=== PATIENT | male | born 1940 | race Caucasian/White ===

== ENCOUNTER 2017-08-27 06:37 | Emergency (ER) | payer OTHER ==
[~2017-08-27] VITALS: Ht 172.7 cm; Wt 68.0 kg
[~2017-08-27 06:37] MED LIST: ALBUAER3 IN; AZIT500T PO; FLUT250M2 INH; TAM04C PO; WARPRX PO
[2017-08-27 06:51] VITALS: BP 131/86
[2017-08-27] MEDS ORDERED: methylPREDNISolone SOD SUCC 125 MG/2 ML VL IM ONE (07:30)
[2017-08-27] MEDS ORDERED: cefTRIAXone SOD 1,000 MG VL IM ONE (07:30)
== END 2017-08-27 08:17 | disposition home or self-care (01) ==
LOC: ER 06:38
DX: R21 Rash and other nonspecific skin eruption (principal)
CPT/HCPCS: 96372; 99284; J0696; J2930

== ENCOUNTER 2017-09-18 07:46 | Inpatient (IN) | payer OTHER ==
[~2017-09-18] VITALS: Ht 172.7 cm; Wt 72.9 kg
[2017-09-18] MEDS: BUDESONIDE (INHALATION) 0.5 MG/2 ML NEB NEB SCH ×2 (07:06→18:47)
[2017-09-18] MEDS ORDERED: SODIUM CHLORIDE 0.9% 1,000 ML IVB ONE (08:35)
[2017-09-18] MEDS ORDERED: MORPHINE SULFATE 4 MG/ML SYR/VIAL IV ONE (08:45)
[2017-09-18] MEDS ORDERED: PROMETHAZINE HCL 25 MG/ML 1ML IV ONE (08:45)
[2017-09-18 09:24] LABS: Basophils # (auto) 0.1 uL; Basophils % (auto) 0.4 % (0.0-2.0); Eosinophils # (auto) 0.1 uL; Eosinophils % (auto) 0.7 % (0.0-7.0); Lymphocytes # (auto) 1.9 uL; Nucleated Red Blood Cells % 0.2 %
[2017-09-18 09:26] LABS: Lymphocytes % (auto) 12.6 % (10.0-50.0); Mean Corpuscular Hemoglobin 25.7 pg (28.0-32.0); Mean Corpuscular Hgb Conc. 31.3 g/dL (32.0-36.0); Mean Corpuscular Volume 82.1 fL (80.0-100.0); Monocytes # (auto) 1.1 uL; Monocytes % (auto) 7.7 % (0.0-12.0); Neutrophils # (auto) 11.8 uL; Neutrophils % (auto) 78.6 % (37.0-80.0); Red Blood Cells 6.98 10^6/uL (4.5-5.90); Red Cell Distribution Width 16.5 % (11.8-14.3)
[2017-09-18 09:27] LABS: Hematocrit 57.4 % (41.0-53.0); Platelet Count (auto) 320 10^3/uL (140-450)
[2017-09-18 09:52] LABS: Alanine Aminotransferase 20 U/L (16-61); Albumin 3.5 g/dL (3.4-5.0); Alkaline Phosphatase 90 U/L (45-117); Amylase 64 U/L (25-115); Anion Gap 6 (5-15); Aspartate Aminotransferase 12 U/L (15-37); BUN/Creatinine Ratio 17.7; Bilirubin, Total 0.3 mg/dL (0.2-1.0); Blood Urea Nitrogen 17 mg/dL (7-18); Calcium 9.6 mg/dL (8.5-10.1); Carbon Dioxide 23 mmol/L (21-32); Chloride 112 mmol/L (98-107); GFR African American 98 mL/min; GFR Non-African American 81 mL/min; Glucose 107 mg/dL (74-106); Lipase 107 U/L (73-393); Potassium 4.9 mmol/L (3.5-5.1); Sodium 141 mmol/L (136-145); Total Protein 7.6 g/dL (6.4-8.2)
[2017-09-18 10:54] LABS: INR 1.34 (0.9-1.15); Partial Thromboplastin Time 24.5 sec (22.64-33.71); Prothrombin Time 14.7 sec (9.37-12.3)
[2017-09-18 11:45] LABS: Urine Bacteria NONE SEEN /hpf (None Seen); Urine Blood TRACE /uL (Negative); Urine Mucus FEW (None Seen); Urine Specific Gravity 1.026 (1.001-1.035); Urine WBC 1 /hpf (0 - 3)
[2017-09-18] MEDS ORDERED: NITROGLYCERIN 0.4 MG SL TAB SL PRN (12:15)
[2017-09-18] MEDS ORDERED: cefTRIAXone 1GM/10ml IVPUSH 10 ML IV ONE (12:15)
[2017-09-18] MEDS ORDERED: ACETAMINOPHEN 500 MG TAB PO PRN (12:15)
[2017-09-18] MEDS ORDERED: PROMETHAZINE HCL 25 MG/ML 1ML IV PRN (12:15)
[2017-09-18] MEDS ORDERED: LORazepam 0.5 MG TAB PO PRN (12:15)
[2017-09-18] MEDS ORDERED: MORPHINE SULFATE 4 MG/ML SYR/VIAL IV PRN ×2 (12:15)
[2017-09-18] MEDS ORDERED: ALBUTEROL SULF 2.5 MG/0.5ML(0.5%) NEB SOLN NEB PRN (12:15)
[2017-09-18] MEDS ORDERED: HYDROcodone-ACET 5/325MG TAB PO PRN (12:15)
[2017-09-18] MEDS ORDERED: TEMAZEPAM 15 MG CAP PO PRN (12:15)
[2017-09-18] MEDS: SODIUM CHLORIDE 0.9% 1,000 ML IV SCH ×2 (12:30→22:11)
[2017-09-18] MEDS: metroNIDAZOLE 500MG/100ML 100 ML IV SCH ×2 (12:42→17:16)
[2017-09-18] MEDS: FAMOTIDINE (10MG/ML) 2ML VL IV SCH (12:42)
[2017-09-18] MEDS ORDERED: WARFARIN SODIUM 5 MG TAB PO ONE (17:00)
[2017-09-18 17:35] VITALS: BP 134/102
[2017-09-18] MEDS: ALBUTEROL SULF 2.5 MG/0.5ML(0.5%) NEB SOLN NEB SCH (18:46)
[2017-09-18 19:19] VITALS: BP 134/102
[2017-09-18 22:07] VITALS: BP 101/47
[2017-09-19] MEDS: ALBUTEROL SULF 2.5 MG/0.5ML(0.5%) NEB SOLN NEB SCH ×4 (00:20→19:45)
[2017-09-19] MEDS: FAMOTIDINE (10MG/ML) 2ML VL IV SCH ×2 (00:29→13:04)
[2017-09-19] MEDS: metroNIDAZOLE 500MG/100ML 100 ML IV SCH ×4 (00:29→17:43)
[2017-09-19 05:01] VITALS: BP 105/67
[2017-09-19 05:45] LABS: Basophils # (auto) 0.1 uL; Eosinophils # (auto) 0.2 uL; Lymphocytes # (auto) 1.9 uL; Nucleated Red Blood Cells % 0.1 %
[2017-09-19 05:50] LABS: Basophils % (auto) 1.1 % (0.0-2.0); Eosinophils % (auto) 2.5 % (0.0-7.0); Hematocrit 45.7 % (41.0-53.0); Hemoglobin 14.9 g/dL (13.5-17.5); Lymphocytes % (auto) 26.9 % (10.0-50.0); Mean Corpuscular Hemoglobin 26.3 pg (28.0-32.0); Mean Corpuscular Hgb Conc. 32.5 g/dL (32.0-36.0); Monocytes # (auto) 0.7 uL; Monocytes % (auto) 10.8 % (0.0-12.0); Neutrophils # (auto) 4.1 uL; Neutrophils % (auto) 58.7 % (37.0-80.0); Platelet Count (auto) 322 10^3/uL (140-450); Red Blood Cells 5.65 10^6/uL (4.5-5.90); Red Cell Distribution Width 16.3 % (11.8-14.3); White Blood Cell 6.9 10^3/uL (4.4-10.8)
[2017-09-19 06:00] LABS: INR 1.33 (0.9-1.15); Partial Thromboplastin Time 30.8 sec (22.64-33.71); Prothrombin Time 14.5 sec (9.37-12.3)
[2017-09-19 09:00] VITALS: BP 109/55
[2017-09-19] MEDS: cefTRIAXone 1GM/10ml IVPUSH 10 ML IV SCH (09:43)
[2017-09-19] MEDS: SODIUM CHLORIDE 0.9% 1,000 ML IV SCH (09:43)
[2017-09-19 13:00] VITALS: BP 136/77
[2017-09-19] MEDS ORDERED: IOHEXOL 300 MG/ML 100ML BOTTLE IJ ONE (14:20)
[2017-09-19 17:00] VITALS: BP 118/62
[2017-09-19] MEDS ORDERED: WARFARIN SODIUM 5 MG TAB PO ONE (17:00)
[2017-09-19] MEDS: BUDESONIDE (INHALATION) 0.5 MG/2 ML NEB NEB SCH (20:32)
[2017-09-19 22:00] VITALS: BP 103/59
[2017-09-20] MEDS: metroNIDAZOLE 500MG/100ML 100 ML IV SCH ×4 (00:02→12:37)
[2017-09-20] MEDS: FAMOTIDINE (10MG/ML) 2ML VL IV SCH ×2 (00:06→12:15)
[2017-09-20 05:00] VITALS: BP 138/75
[2017-09-20] MEDS: ALBUTEROL SULF 2.5 MG/0.5ML(0.5%) NEB SOLN NEB SCH ×3 (06:00→12:00)
[2017-09-20 06:16] VITALS: BP 138/75
[2017-09-20 07:02] LABS: INR 1.18 (0.9-1.15); Partial Thromboplastin Time 27.9 sec (22.64-33.71); Prothrombin Time 12.9 sec (9.37-12.3)
[2017-09-20 09:00] VITALS: BP 154/91
[2017-09-20] MEDS: cefTRIAXone 1GM/10ml IVPUSH 10 ML IV SCH (09:34)
[2017-09-20] MEDS: BUDESONIDE (INHALATION) 0.5 MG/2 ML NEB NEB SCH (10:00)
[2017-09-20] MEDS ORDERED: HYD1TP TOP (13:07)
[2017-09-20] MEDS ORDERED: METR250T PO (13:07)
[2017-09-20] MEDS ORDERED: WARFARIN SODIUM 5 MG TAB PO ONE (17:00)
[2017-09-20] MEDS ORDERED: HYDROCORTONE 1% TOPICAL CREAM 30 GM TUBE TOP SCH (22:00)
== END 2017-09-20 17:21 | disposition home or self-care (01) | DRG 392 ==
LOC: EDBD 07:46 → ER 07:46 → TELE 07:47 → TELE-WESTW 15:54
PROVIDERS: ADMIT Internal Medicine; ATTEND Hospitalist
DX: K52.9 Noninfective gastroenteritis and colitis, unspecified (principal); J44.9 Chronic obstructive pulmonary disease, unspecified; K56.0 Paralytic ileus; N28.1 Cyst of kidney, acquired; K57.90 Diverticulosis of intestine, part unspecified, without perforation or abscess without bleeding; F17.210 Nicotine dependence, cigarettes, uncomplicated; F41.9 Anxiety disorder, unspecified; G47.00 Insomnia, unspecified; I70.0 Atherosclerosis of aorta; R91.1 Solitary pulmonary nodule; N28.89 Other specified disorders of kidney and ureter; K40.20 Bilateral inguinal hernia, without obstruction or gangrene, not specified as recurrent; N40.0 Benign prostatic hyperplasia without lower urinary tract symptoms; Z86.711 Personal history of pulmonary embolism; Z88.1 Allergy status to other antibiotic agents; Z79.899 Other long term (current) drug therapy
CPT/HCPCS: 36415; 71045; 71260; 74176; 80053; 81001; 82150; 83690; 83735; 84484; 85025; 85610; 85730; 87081; 93005; 94640; 94761; 96361; 96374; 96375; J3490

== ENCOUNTER 2018-04-11 00:51 | Emergency (ER) | payer OTHER ==
[~2018-04-11] VITALS: Ht 172.7 cm; Wt 68.0 kg
[~2018-04-11 00:51] MED LIST changes: -AZIT500T PO; +HYD1TP TOP; +METR250T PO
[2018-04-11 01:25] VITALS: BP 106/66
[2018-04-11] MEDS ORDERED: cefTRIAXone SOD 1,000 MG VL IM ONE (05:00)
[2018-04-11] MEDS ORDERED: LACTULOSE 20Gm/30ML SOLN PO ONE (05:15)
[2018-04-11] MEDS ORDERED: LIDOCAINE 1% (LOCAL ANESTH.) PF 5ml SDV ONE (05:33)
[2018-04-11] MEDS ORDERED: LIDOCAINE 1% HCL (LOCAL ANESTH.) INJ 20ML MDV IJ ONE (05:45)
== END 2018-04-11 05:56 | disposition home or self-care (01) ==
LOC: ER 00:55
DX: S50.861A Insect bite (nonvenomous) of right forearm, initial encounter (principal); J44.9 Chronic obstructive pulmonary disease, unspecified; I48.91 Unspecified atrial fibrillation; Z88.1 Allergy status to other antibiotic agents; Z79.01 Long term (current) use of anticoagulants; Z79.899 Other long term (current) drug therapy; F17.210 Nicotine dependence, cigarettes, uncomplicated; W57.XXXA Bitten or stung by nonvenomous insect and other nonvenomous arthropods, initial encounter; Y93.89 Activity, other specified; Y99.8 Other external cause status; Y92.89 Other specified places as the place of occurrence of the external cause
CPT/HCPCS: 96372; 99283; J0696

== ENCOUNTER 2018-05-07 09:22 | Emergency (ER) | payer OTHER ==
[~2018-05-07] VITALS: Ht 172.7 cm; Wt 63.5 kg
[2018-05-07 09:35] VITALS: BP 126/79
[2018-05-07] MEDS: LIDOCAINE 1%HCL (LOCAL ANESTH) 10 ML MDV ONE (11:13)
[2018-05-07] MEDS: cefTRIAXone SOD 1,000 MG VL IM ONE (11:13)
[2018-05-07] MEDS: LIDOCAINE 1% HCL (LOCAL ANESTH.) INJ 20ML MDV IJ ONE (11:14)
== END 2018-05-07 11:25 | disposition home or self-care (01) ==
LOC: ER 09:25
DX: B35.4 Tinea corporis (principal); J44.9 Chronic obstructive pulmonary disease, unspecified; F17.210 Nicotine dependence, cigarettes, uncomplicated; Z88.1 Allergy status to other antibiotic agents
CPT/HCPCS: 96372; 99283; J0696; J2001

== ENCOUNTER 2018-05-28 08:23 | Emergency (ER) | payer OTHER ==
[~2018-05-28] VITALS: Ht 172.7 cm; Wt 59.0 kg
[2018-05-28 08:37] VITALS: BP 144/71
[2018-05-28] MEDS ORDERED: CLOTRIMAZOLE 1 % CREAM 15GM TOP ONE (08:45)
== END 2018-05-28 09:18 | disposition home or self-care (01) ==
LOC: ER 08:23
DX: B35.4 Tinea corporis (principal); Z88.1 Allergy status to other antibiotic agents; J44.9 Chronic obstructive pulmonary disease, unspecified; F17.210 Nicotine dependence, cigarettes, uncomplicated

== ENCOUNTER → 2018-06-11 | Outpatient (CLI) | payer OTHER ==
[~2018-06-11] MED LIST changes: +MIDAZOLAM HCL 1MG/1ML-2 ML VIAL ONE; +fentaNYL CITRATE 100 MCG/2 ML VL ONE
[2018-06-11 09:53] LABS: INR 1.09 (0.9-1.15); Partial Thromboplastin Time 29.4 sec (23.78-33.04); Prothrombin Time 11.6 sec (9.27-12.13)
== END | disposition home or self-care (01) ==
LOC: CT 09:13
PROVIDERS: ATTEND Internal Medicine Pulmonary Disease
DX: R91.1 Solitary pulmonary nodule (principal)
CPT/HCPCS: 36415; 85610; 85730; J2250

== ENCOUNTER 2018-08-22 03:47 | Emergency (ER) | payer OTHER ==
[~2018-08-22] VITALS: Ht 172.7 cm; Wt 65.8 kg
[~2018-08-22 03:47] MED LIST changes: -MIDAZOLAM HCL 1MG/1ML-2 ML VIAL ONE; -fentaNYL CITRATE 100 MCG/2 ML VL ONE
[2018-08-22] MEDS ORDERED: KETOROLAC TROMETH 60MG/2ML VIAL IM ONE (08:00)
[2018-08-22 08:04] LABS: Urine WBC None Seen /hpf (0 - 3)
[2018-08-22 08:16] LABS: Urine Bacteria NONE SEEN /hpf (None Seen); Urine Blood TRACE /uL (Negative); Urine Mucus FEW (None Seen); Urine Specific Gravity 1.018 (1.001-1.035)
[2018-08-22 09:16] VITALS: BP 126/94
== END 2018-08-22 09:44 | disposition home or self-care (01) ==
LOC: ER 03:50
DX: S39.011A Strain of muscle, fascia and tendon of abdomen, initial encounter (principal); J44.9 Chronic obstructive pulmonary disease, unspecified; E78.5 Hyperlipidemia, unspecified; F17.210 Nicotine dependence, cigarettes, uncomplicated; Z86.711 Personal history of pulmonary embolism; Z88.1 Allergy status to other antibiotic agents; Z79.01 Long term (current) use of anticoagulants; Z79.899 Other long term (current) drug therapy; X50.0XXA Overexertion from strenuous movement or load, initial encounter; Y93.89 Activity, other specified; Y99.8 Other external cause status; Y92.89 Other specified places as the place of occurrence of the external cause
CPT/HCPCS: 74176; 81001; 96372; 99284; J1885

== ENCOUNTER 2019-04-02 14:12 | Emergency (ER) | payer OTHER ==
[~2019-04-02] VITALS: Ht 172.7 cm; Wt 68.0 kg
[~2019-04-02 14:12] MED LIST changes: -METR250T PO
[2019-04-02] MEDS ORDERED: AZITHROMYCIN 500MG/ 250ML 250 ML IV ONE (14:30)
[2019-04-02] MEDS ORDERED: cefTRIAXone 1GM/50ML D5W 50 ML IV ONE (14:30)
[2019-04-02 19:14] LABS: Urine Bacteria NONE SEEN /hpf (None Seen); Urine Blood 1+ /uL (Negative); Urine Mucus FEW (None Seen); Urine Specific Gravity 1.018 (1.001-1.035); Urine WBC 1 /hpf (0 - 3)
[2019-04-02 19:20] LABS: Alanine Aminotransferase 15 U/L (16-61); Albumin 3.5 g/dL (3.4-5.0); Anion Gap 8 (5-15); Aspartate Aminotransferase 9 U/L (15-37); BUN/Creatinine Ratio 14.2; Blood Urea Nitrogen 15 mg/dL (7-18); Calcium 9.5 mg/dL (8.5-10.1); Carbon Dioxide 27 mmol/L (21-32); Chloride 108 mmol/L (98-107); GFR African American 87 mL/min; GFR Non-African American 72 mL/min; Glucose 78 mg/dL (74-106); Sodium 143 mmol/L (136-145)
[2019-04-02 19:21] LABS: Basophils # (auto) 0.1 uL; Basophils % (auto) 2.2 % (0.0-2.0); Eosinophils # (auto) 0.2 uL; Hematocrit 48.1 % (41.0-53.0); Hemoglobin 15.7 g/dL (13.5-17.5); Lymphocytes # (auto) 1.5 uL; Lymphocytes % (auto) 27.4 % (10.0-50.0); Mean Corpuscular Hemoglobin 26.7 pg (28.0-32.0); Mean Corpuscular Hgb Conc. 32.7 g/dL (32.0-36.0); Mean Corpuscular Volume 81.6 fL (80.0-100.0); Monocytes # (auto) 0.9 uL; Monocytes % (auto) 15.4 % (0.0-12.0); Neutrophils # (auto) 2.9 uL; Nucleated Red Blood Cells % 0.2 %; Platelet Count (auto) 313 10^3/uL (140-450); Red Blood Cells 5.89 10^6/uL (4.5-5.90); White Blood Cell 5.6 10^3/uL (4.4-10.8)
[2019-04-02 19:26] LABS: Alkaline Phosphatase 88 U/L (45-117); Bilirubin, Total 0.3 mg/dL (0.2-1.0); Total Protein 7.5 g/dL (6.4-8.2)
[2019-04-02 21:25] VITALS: BP 117/80
== END 2019-04-02 21:49 | disposition home or self-care (01) ==
LOC: ER 14:16
DX: J18.9 Pneumonia, unspecified organism (principal); J44.9 Chronic obstructive pulmonary disease, unspecified; E78.5 Hyperlipidemia, unspecified; F17.210 Nicotine dependence, cigarettes, uncomplicated; Z86.711 Personal history of pulmonary embolism
CPT/HCPCS: 36415; 71250; 80053; 81001; 83880; 84484; 85025; 87040; 93005; 96365; 96366; 96367; 99284; J0456; J0696

== ENCOUNTER 2019-12-24 13:45 | Emergency (ER) | payer OTHER ==
[~2019-12-24] VITALS: Ht 172.7 cm; Wt 68.0 kg
[2019-12-24 13:51] VITALS: BP 136/77
== END 2019-12-24 14:59 | disposition home or self-care (01) ==
LOC: ER 13:45
DX: L20.9 Atopic dermatitis, unspecified (principal); J44.9 Chronic obstructive pulmonary disease, unspecified; E78.5 Hyperlipidemia, unspecified

== ENCOUNTER → 2020-02-12 | Emergency (ER) | payer OTHER ==
[~2020-02-12] VITALS: Ht 172.7 cm; Wt 68.0 kg
[~2020-02-12] MED LIST changes: +ACETAMINOPHEN 500 MG TAB PO ONE; +WARF-196 PO; -WARPRX PO
[2020-02-12 22:02] VITALS: BP 108/45
== END | disposition home or self-care (01) ==
LOC: ER 21:29
DX: M25.562 Pain in left knee (principal); M25.462 Effusion, left knee; E78.5 Hyperlipidemia, unspecified; J44.9 Chronic obstructive pulmonary disease, unspecified; F17.210 Nicotine dependence, cigarettes, uncomplicated; Z88.1 Allergy status to other antibiotic agents
CPT/HCPCS: 73560

== ENCOUNTER 2020-07-10 13:56 | Emergency (ER) | payer MEDICARE, OTHER ==
[~2020-07-10] VITALS: Ht 172.7 cm; Wt 63.5 kg
[~2020-07-10 13:56] MED LIST changes: -ACETAMINOPHEN 500 MG TAB PO ONE
[2020-07-10 14:30] VITALS: BP 131/69
[2020-07-10] MEDS ORDERED: FLUORESCEIN SOD 1 MG TEST STRIP LEFTEYE ONE (16:00)
[2020-07-10] MEDS ORDERED: TETRACAINE HCL 0.5% OPTH(EYE) SOLN 4ML LEFTEYE ONE (16:00)
== END 2020-07-10 16:31 | disposition home or self-care (01) ==
LOC: ER 13:56
DX: S00.211A Abrasion of right eyelid and periocular area, initial encounter (principal); J44.9 Chronic obstructive pulmonary disease, unspecified; E78.5 Hyperlipidemia, unspecified; Z88.6 Allergy status to analgesic agent; X58.XXXA Exposure to other specified factors, initial encounter; Y93.89 Activity, other specified; Y92.89 Other specified places as the place of occurrence of the external cause; Y99.8 Other external cause status

== ENCOUNTER → 2020-08-25 | Emergency (ER) | payer MEDICARE | END | disposition left against medical advice (07) | LOC: ER 23:48 | DX: R21 Rash and other nonspecific skin eruption (principal); Z53.21 Procedure and treatment not carried out due to patient leaving prior to being seen by health care provider ==

== ENCOUNTER 2020-11-10 12:53 | Inpatient (IN) | payer MEDICARE, OTHER ==
[~2020-11-10] VITALS: Ht 172.7 cm; Wt 64.9 kg
[2020-11-10] MEDS ORDERED: cefTRIAXone 1GM/50ML D5W 50 ML IV ONE (13:00)
[2020-11-10] MEDS ORDERED: CLINDAMYCIN 600MG IV 50 ML IV ONE (13:00)
[2020-11-10] MEDS ORDERED: SODIUM CHLORIDE 0.9% 1,000 ML IV ONE (13:00)
[2020-11-10 13:43] LABS: Basophils # (auto) 0.1 10 ^3/uL (0-0.2); Eosinophils # (auto) 0 10 ^3/uL (0-0.8); Eosinophils % (auto) 0.1 % (0.0-7.0); Mean Corpuscular Hemoglobin 26.3 pg (28.0-32.0); Mean Corpuscular Hgb Conc. 32.8 g/dL (32.0-36.0); Monocytes # (auto) 2.5 10 ^3/uL (0-1.3); Monocytes % (auto) 14.3 % (0.0-12.0)
[2020-11-10 13:45] LABS: Basophils % (auto) 0.3 % (0.0-2.0); Hematocrit 46.3 % (41.0-53.0); Hemoglobin 15.2 g/dL (13.5-17.5); Lymphocytes % (auto) 5.9 % (10.0-50.0); Neutrophils # (auto) 13.9 10 ^3/uL (1.6-8.6); Neutrophils % (auto) 79.4 % (37.0-80.0); Nucleated Red Blood Cells % 0.2 %; Platelet Count (auto) 334 10^3/uL (140-450); Red Blood Cells 5.78 10^6/uL (4.5-5.90); White Blood Cell 17.5 10^3/uL (4.4-10.8)
[2020-11-10 14:01] LABS: Albumin 2.9 g/dL (3.4-5.0); Anion Gap 9 (5-15); Blood Urea Nitrogen 25 mg/dL (7-18); Calcium 9.7 mg/dL (8.5-10.1); Carbon Dioxide 23 mmol/L (21-32); Chloride 104 mmol/L (98-107); Glucose 98 mg/dL (74-106); Sodium 136 mmol/L (136-145)
[2020-11-10 14:06] LABS: Alanine Aminotransferase 19 U/L (16-61); Alkaline Phosphatase 97 U/L (45-117); Aspartate Aminotransferase 17 U/L (15-37); BUN/Creatinine Ratio 19.7; Bilirubin, Total 0.7 mg/dL (0.2-1.0); GFR African American 70 mL/min; GFR Non-African American 58 mL/min; Total Protein 7.7 g/dL (6.4-8.2)
[2020-11-10] MEDS ORDERED: LORazepam 0.5 MG TAB PO PRN (14:45)
[2020-11-10] MEDS ORDERED: LABETALOL HCL 5 MG/ML 4ML SYRINGE IV PRN (14:45)
[2020-11-10] MEDS ORDERED: ONDANSETRON HCL 4 MG/2 ML VIAL IV PRN (14:45)
[2020-11-10] MEDS ORDERED: MORPHINE SULF INJ 2 MG/ML SYRINGE 1ML IV PRN (14:45)
[2020-11-10] MEDS ORDERED: ACETAMINOPHEN 500 MG TAB PO PRN (14:45)
[2020-11-10] MEDS ORDERED: DOCUSATE CALCIUM 240 MG CAP PO PRN (14:45)
[2020-11-10] MEDS ORDERED: SODIUM CHLORIDE 0.9% 500 ML IV ONE (14:45)
[2020-11-10] MEDS ORDERED: VANCOMYCIN PER PHARMACY 0 MG IV SCH (14:45)
[2020-11-10] MEDS ORDERED: MORPHINE SULFATE 4 MG/ML SYR/VIAL IV ONE (14:45)
[2020-11-10] MEDS ORDERED: NITROGLYCERIN 0.4 MG SL TAB SL PRN (14:45)
[2020-11-10] MEDS ORDERED: TETANUS-DIPTH-ACEL PERTUSSIS 0.5ML SYR Tdap IM ONE (14:45)
[2020-11-10] MEDS ORDERED: ALBUTEROL SULF 2.5 MG/0.5ML(0.5%) NEB SOLN NEB PRN (15:00)
[2020-11-10 15:09] VITALS: BP 110/77
[2020-11-10] MEDS: SODIUM CHLORIDE 0.9% 1,000 ML IV SCH (15:28)
[2020-11-10] MEDS ORDERED: VANCOMYCIN 1GM/250ML 250 ML IV SCH (16:00)
[2020-11-10 17:07] VITALS: BP 107/61
[2020-11-10] MEDS: MORPHINE SULF INJ 2 MG/ML SYRINGE 1ML IV PRN (20:12)
[2020-11-10 20:25] LABS: Urine Bacteria NONE SEEN /hpf (None Seen); Urine Blood TRACE /uL (Negative); Urine Mucus FEW (None Seen); Urine WBC 1 /hpf (0 - 3)
[2020-11-10 22:00] VITALS: BP 118/71
[2020-11-11] MEDS: MORPHINE SULF INJ 2 MG/ML SYRINGE 1ML IV PRN ×4 (00:25→21:57)
[2020-11-11] MEDS: PIPERACILLIN-TAZOB 3.375GM 100 ML IV SCH ×4 (00:25→18:07)
[2020-11-11 05:00] VITALS: BP 93/50
[2020-11-11 09:00] VITALS: BP 103/67
[2020-11-11] MEDS ORDERED: ENOXAPARIN SOD 40 MG/0.4 ML SYRINGE SC SCH (10:00)
[2020-11-11] MEDS ORDERED: PANTOPRAZOLE 40 MG TAB PO SCH (10:00)
[2020-11-11 11:23] LABS: Basophils # (auto) 0.1 10 ^3/uL (0-0.2); Basophils % (auto) 0.8 % (0.0-2.0); Eosinophils # (auto) 0.1 10 ^3/uL (0-0.8); Monocytes % (auto) 13.8 % (0.0-12.0); Nucleated Red Blood Cells % 0.1 %
[2020-11-11 11:28] LABS: Eosinophils % (auto) 0.7 % (0.0-7.0); Hematocrit 41.2 % (41.0-53.0); Hemoglobin 13.5 g/dL (13.5-17.5); Lymphocytes # (auto) 1.3 10 ^3/uL (0.4-5.4); Mean Corpuscular Hemoglobin 26.2 pg (28.0-32.0); Mean Corpuscular Hgb Conc. 32.7 g/dL (32.0-36.0); Monocytes # (auto) 1.8 10 ^3/uL (0-1.3); Neutrophils # (auto) 9.9 10 ^3/uL (1.6-8.6); Neutrophils % (auto) 74.7 % (37.0-80.0); Platelet Count (auto) 316 10^3/uL (140-450); Red Blood Cells 5.16 10^6/uL (4.5-5.90); White Blood Cell 13.2 10^3/uL (4.4-10.8)
[2020-11-11 11:46] LABS: INR 1.09 (0.9-1.15)
[2020-11-11] MEDS: SODIUM CHLORIDE 0.9% 1,000 ML IV SCH (11:46)
[2020-11-11 12:21] LABS: Albumin 2.2 g/dL (3.4-5.0); BUN/Creatinine Ratio 21.2; Bilirubin, Total 0.5 mg/dL (0.2-1.0); Calcium 9.1 mg/dL (8.5-10.1); Total Protein 6.4 g/dL (6.4-8.2)
[2020-11-11] MEDS ORDERED: IPRATROPIUM BROM 0.5 MG/2.5ML INH SOL NEB PRN (12:30)
[2020-11-11 12:52] VITALS: BP 116/67
[2020-11-11 17:00] VITALS: BP 123/66
[2020-11-11 21:25] VITALS: BP 106/55
[2020-11-11 22:00] VITALS: BP 106/55
[2020-11-14 11:07] LABS: Hepatitis B Surface Antibody Positive
[2020-11-14 11:37] LABS: Hepatitis A Total Antibody Positive
[2020-11-14 13:15] LABS: Hepatitis B Surface Antigen Negative (Negative)
[2020-11-14 13:18] LABS: Hepatitis B Core Total AB Positive; Hepatitis C Antibody Positive (Negative)
== END 2020-11-11 22:40 | disposition short-term general hospital (02) | DRG 871 ==
LOC: ER 12:53 → TELE-EAST 14:47
PROVIDERS: ADMIT Family Medicine; ATTEND Internal Medicine
DX: A41.9 Sepsis, unspecified organism (principal); N17.0 Acute kidney failure with tubular necrosis; L03.115 Cellulitis of right lower limb; L40.9 Psoriasis, unspecified; E86.0 Dehydration; N18.30 Chronic kidney disease, stage 3 unspecified; Z20.822 Contact with and (suspected) exposure to COVID-19; Z88.1 Allergy status to other antibiotic agents; E78.5 Hyperlipidemia, unspecified; F17.210 Nicotine dependence, cigarettes, uncomplicated; J44.9 Chronic obstructive pulmonary disease, unspecified; N40.0 Benign prostatic hyperplasia without lower urinary tract symptoms; F41.9 Anxiety disorder, unspecified; F19.10 Other psychoactive substance abuse, uncomplicated
CPT/HCPCS: 36415; 71045; 73700; 80053; 81001; 83605; 84443; 84484; 85025; 85610; 86704; 86706; 86708; 86803; 87040; 87340; 87426; 90471; 90715; 96365; 96368; G0378; J0696; J2543; J3490